=== PATIENT | male | born 1980 | race African-American/Black ===

== ENCOUNTER 2018-03-23 13:56 | Emergency (ER) | payer MEDICAID ==
[~2018-03-23] VITALS: Ht 172.7 cm; Wt 86.0 kg
[2018-03-23] MEDS ORDERED: KETOROLAC 60MG/2ML VIAL IM ONE (15:45)
[2018-03-23 18:20] VITALS: BP 136/98
== END 2018-03-23 18:21 | disposition home or self-care (01) ==
LOC: ER 15:30
DX: M25.552 Pain in left hip (principal); M25.551 Pain in right hip; F17.200 Nicotine dependence, unspecified, uncomplicated; J45.909 Unspecified asthma, uncomplicated
CPT/HCPCS: 73521; 96372; 99284; J1885

== ENCOUNTER 2023-09-16 17:02 | Emergency (ER) | payer MEDICAID ==
[~2023-09-16] VITALS: Ht 172.7 cm; Wt 70.0 kg
[2023-09-16 17:06] VITALS: O2SAT 98
[2023-09-16] MEDS ORDERED: SULF1TAB48 MT (18:20)
[2023-09-16] MEDS ORDERED: NAPR-681 MT (18:20)
[2023-09-16] MEDS ORDERED: CEPH500C2 MT (18:20)
[2023-09-16] MEDS ORDERED: BO1 TP (18:20)
[2023-09-16 18:29] VITALS: BP 145/83; PULSE 57; RESP 18; TEMP 98.9
== END 2023-09-16 18:29 | disposition home or self-care (01) ==
LOC: ER 17:24
DX: L03.116 Cellulitis of left lower limb (principal); J45.909 Unspecified asthma, uncomplicated
CPT/HCPCS: 99283